=== PATIENT | male | born 1985 | race Caucasian/White ===

== ENCOUNTER 2020-02-09 12:46 | Emergency (ER) | payer OTHER, SELFPAY ==
[2020-02-09 13:29] VITALS: BP 145/89; PULSE 58; RESP 16; TEMP 37; O2SAT 99; BMI 29.7
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
[2020-02-09 16:03] VITALS: BP 159/109; PULSE 63; RESP 20; O2SAT 98
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
== END 2020-02-09 16:16 | disposition home or self-care (01) ==
PROVIDERS: Emergency Provider Emergency Medicine
DX: S00.90XA Unspecified superficial injury of unspecified part of head, initial encounter (principal); G44.309 Post-traumatic headache, unspecified, not intractable; Y04.8XXA Assault by other bodily force, initial encounter; Y93.9 Activity, unspecified; Y92.219 Unspecified school as the place of occurrence of the external cause; Y99.0 Civilian activity done for income or pay
CPT/HCPCS: 70450; 99284

== ENCOUNTER → 2022-01-12 10:11 | Outpatient (BNVA) | payer OTHER, SELFPAY | PROVIDERS: Visit Provider Physician Assistant | DX: M25.531 Pain in right wrist (principal); R51.9 Headache, unspecified | CPT/HCPCS: 73110; 99204 ==

== ENCOUNTER → 2022-01-18 11:47 | Outpatient (BNVA) | payer OTHER, SELFPAY | PROVIDERS: Visit Provider Physician Assistant Medical | DX: S40.871A Other superficial bite of right upper arm, initial encounter (principal); W50.3XXA Accidental bite by another person, initial encounter | CPT/HCPCS: 99202 ==

== ENCOUNTER 2022-05-03 07:57 | Emergency (ER) | payer SELFPAY ==
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
[2022-05-03 08:10] VITALS: BP 132/98; PULSE 73; O2SAT 99
[2022-05-03 08:11] VITALS: BP 136/92; PULSE 65; RESP 18; TEMP 36.6; O2SAT 98; BMI 29.3
[2022-05-03 08:33] VITALS: BP 124/78; PULSE 59; RESP 16; TEMP 36.7; O2SAT 98
== END 2022-05-03 09:57 | disposition home or self-care (01) ==
PROVIDERS: Emergency Provider Emergency Medicine
DX: Z04.1 Encounter for examination and observation following transport accident (principal); R51.9 Headache, unspecified; M54.2 Cervicalgia
CPT/HCPCS: 70450; 72125; 99284